=== PATIENT | female | born 1985 | race Caucasian/White ===

== ENCOUNTER → 2020-03-28 15:28 | Outpatient (CLI) | payer OTHER, SELFPAY ==
[2020-03-28 16:45] LABS: Add Manual Diff / Slide Review NO; Basophils Absolute Auto 100 /uL (0-100); Basophils Percent Auto 0.7 % (0-2); Eosinophils Absolute Auto 0 /uL (0-450); Eosinophils Percent Auto 0.6 % (2-4); Hematocrit 34.8 % (36-46); Hemoglobin 11.8 g/dL (12.0-16.0); Lymphocytes Absolute Auto 1500 /uL (1100-4500); Lymphocytes Percent Auto 17.9 % (25-40); Mean Corpuscular HGB Conc 33.9 % (30-36); Mean Corpuscular Hemoglobin 31.6 PG (26-34); Mean Corpuscular Volume 93.2 fL (80-100); Monocytes Absolute Auto 500 /uL (0-900); Monocytes Percent Auto 5.8 % (3-14); Neutrophils Absolute Auto 6300 /uL (1500-7000); Platelet Count 259 X10^3/uL (150-400); Red Blood Cell Count 3.73 X10^6/uL (4.0-5.2); Red Cell Distribution Width 13.1 % (11.6-14.8); White Blood Cell Count 8.4 X10^3/uL (4.5-11.0)
[2020-03-28 16:54] LABS: Appearance Urine UA CLEAR; Bilirubin Urine UA NEGATIVE (NEGATIVE); Color Urine UA YELLOW; Glucose Urine UA NEGATIVE (Negative); Ketones Urine UA NEGATIVE (NEGATIVE); Leukocyte Esterase Urine UA NEGATIVE (NEGATIVE); Nitrite Urine UA NEGATIVE (Negative); Occult Blood Urine UA NEGATIVE (Negative); Protein Urine UA NEGATIVE (Negative); Specific Gravity Urine UA 1.015 (1.000-1.035); Urobilinogen Urine UA 0.2 E.U./dL (0.2)
[2020-03-28 16:56] LABS: pH Urine UA 6.5 (4.5-8.0)
[2020-03-29 07:36] LABS: RPR Screen Non Reactive (Non Reactive)
[2020-03-29 09:07] LABS: Varicella IgG Antibody 991 index (Immune >165)
[2020-03-31 15:46] LABS: Hepatitis B Surface Antigen NEGATIVE s/c (NEGATIVE)
[2020-03-31 16:02] LABS: HIV 1 & 2 Ab/Ag 4th Gen Combo NEGATIVE (NEGATIVE); Hep C Virus Ab w/Reflex Quant NEGATIVE s/c (NEGATIVE)
== END ==
PROVIDERS: PCP Nurse Practitioner Family; Referring Provider Obstetrics & Gynecology; Visit Provider Obstetrics & Gynecology
DX: O09.511 Supervision of elderly primigravida, first trimester (principal); Z36.0 Encounter for antenatal screening for chromosomal anomalies
CPT/HCPCS: 36415; 80055; 81003; 81420; 86787; 86803; 86850; 86900; 86901; 87086; 87389

== ENCOUNTER → 2020-04-29 15:16 | Outpatient (CLI) | payer OTHER, SELFPAY ==
[2020-05-01 19:40] LABS: AFP Value 36.8 ng/mL (.); Gest Age on Col Date 16.9 weeks (.); Insulin Dep Diabetes No (.); OSBR Risk 1IN 10000 (.); Results Report (.); Test Results *Screen Negative* (.)
== END ==
PROVIDERS: PCP Nurse Practitioner Family; Referring Provider Obstetrics & Gynecology; Visit Provider Obstetrics & Gynecology
DX: Z34.02 Encounter for supervision of normal first pregnancy, second trimester (principal); Z3A.16 16 weeks gestation of pregnancy
CPT/HCPCS: 36415; 82105

== ENCOUNTER → 2020-05-19 10:14 | Outpatient (CLI) | payer OTHER, SELFPAY ==
--- NOTE | 2020-05-19 10:15 | DI.US.S_ITS ---
PROCEDURE: US OB >= 14 WEEKS FETUS INDICATIONS: Anatomy Scan OUTSIDE/PRIOR DATING DATA: Last menstrual period (LMP): 01/02/2020 . LMP-based estimated date of delivery (KARLEY): 10/08/2020 . First dating scan (date and location): [place] 03/12/2020 . Estimated date of delivery (KARLEY) from first dating scan: 10/05/2020 . TECHNIQUE: Real-time scanning was performed of the fetus, with image documentation and biometric measurements. COMPARISON: [facility], , OB <= 14 WEEKS FETUS, 03/12/2020, 14:10. [facility], , OB >= 14 WEEKS FETUS, 04/14/2020, 16:21. FINDINGS: General: A single living intrauterine gestation is present. Presentation: Vertex. Placenta: Placental position is posterior , without previa. Lower placental edge 2 cm or less from internal cervical os qualifies as low lying placenta. Amniotic fluid index: 16.7 cm, normal range is 5-24 cm. heart rate: 145 beats per minute. Maternal cervical canal: 4.4 cm long. Normal lower limit is 2.5 cm. biometrics: Biparietal diameter: 21 weeks 1 day Head circumference: 20 weeks 6 days Abdominal circumference: 21 weeks 0 day Femur length: 19 weeks 5 days Estimated gestational age from initial scan: not applicable. Composite gestational age from present scan: 20 weeks 5 days Estimated weight and percentile: 356 grams, 64th percentile Measurement variability for biometric dating: +/- 7 days from 14 weeks to 15 weeks 6 days gestation, +/- 10 days from 16 weeks to 21 weeks 6 days gestation, +/- 2 weeks from 22 weeks to 27 weeks 6 days gestation, +/- 3 weeks for 28 weeks gestation or later. weight reference: 4500 g or EFW >90/95% is considered macrosomia or large for gestational age. EFW <10% is small for gestational age. EFW 5% or less is considered intra-uterine growth restriction. Anatomic survey: Neuro: Ventricles are non-dilated at less than 10 mm. Cisterna magna is normal at 3-11 mm. Cerebellum is normal in size and morphology. Nuchal skin fold: Normal at less than 6 mm between 14-21 weeks gestational age. Face: Nose and lips, facial profile are normal. Spine: No evidence for spina bifida. Heart: 4-chambered heart is present, with normal ventricular outflow tracts. Diaphragm: Diaphragm is intact. Stomach: Left-sided stomach is present. Kidneys: No hydronephrosis. Normal is less than 5 mm in 2nd trimester, less than 7 mm in 3rd trimester. Cord: 3-vessel cord has orthotopic insertion. Bladder: Normal in size. Extremities: All 4 extremities identified. IMPRESSION: Single live intrauterine with a composite ultrasound age of 20 weeks 5 days from present scan. Dictated by: Marcellus Puckett M.D. on 05/19/2020 at 12:07 Approved by: Marcellus Puckett M.D. on 05/19/2020 at 12:12
== END ==
PROVIDERS: PCP Nurse Practitioner Family; Referring Provider Obstetrics & Gynecology; Visit Provider Obstetrics & Gynecology
DX: Z34.02 Encounter for supervision of normal first pregnancy, second trimester (principal); Z3A.20 20 weeks gestation of pregnancy
CPT/HCPCS: 76811

== ENCOUNTER → 2020-07-03 15:04 | Outpatient (CLI) | payer OTHER, SELFPAY ==
[2020-07-03 17:06] LABS: Hematocrit 31.1 % (36-46); Hemoglobin 10.8 g/dL (12.0-16.0)
[2020-07-03 18:15] LABS: GTT (PREG) 1 Hour PP 50gm Dose 168 mg/dL (76-139)
== END ==
PROVIDERS: PCP Nurse Practitioner Family; Referring Provider Obstetrics & Gynecology; Visit Provider Obstetrics & Gynecology
DX: Z34.02 Encounter for supervision of normal first pregnancy, second trimester (principal); Z3A.26 26 weeks gestation of pregnancy
CPT/HCPCS: 36415; 82950; 85014; 85018

== ENCOUNTER → 2020-07-09 08:05 | Outpatient (CLI) | payer OTHER, SELFPAY ==
[2020-07-09 09:35] LABS: Glucose Fasting Gestational 74 mg/dL (76-95)
[2020-07-09 10:31] LABS: Glucose 1 Hour Gest 154 mg/dL (76-180)
[2020-07-09 11:23] LABS: Glucose 2 Hour Gest 110 mg/dL (76-155)
[2020-07-09 11:43] LABS: Glucose Tol Interp,Gestational INTERPRETATION
[2020-07-09 12:29] LABS: Glucose 3 Hour Gest 39 mg/dL (76-140)
== END ==
PROVIDERS: PCP Nurse Practitioner Family; Referring Provider Obstetrics & Gynecology; Visit Provider Obstetrics & Gynecology
DX: Z34.83 Encounter for supervision of other normal pregnancy, third trimester (principal); Z3A.26 26 weeks gestation of pregnancy
CPT/HCPCS: 36415; 82951; 82952

== ENCOUNTER → 2020-09-04 16:57 | Outpatient (CLI) | payer OTHER, SELFPAY ==
[2020-09-05 17:49] LABS: Strep Grp B PCR NEG for Grp B Strep
== END ==
PROVIDERS: PCP Nurse Practitioner Family; Visit Provider Obstetrics & Gynecology
DX: Z34.03 Encounter for supervision of normal first pregnancy, third trimester (principal); Z3A.35 35 weeks gestation of pregnancy
CPT/HCPCS: 87653

== ENCOUNTER → 2020-10-01 09:45 | Outpatient (CLI) | payer OTHER, SELFPAY ==
[2020-10-01 10:32] LABS: COVID19 -Nasal RAPID Negative (Negative)
== END ==
PROVIDERS: PCP Nurse Practitioner Family; Visit Provider Obstetrics & Gynecology
DX: Z01.812 Encounter for preprocedural laboratory examination (principal); Z20.822 Contact with and (suspected) exposure to COVID-19
CPT/HCPCS: 87635

== ENCOUNTER 2020-10-02 07:13 | Inpatient (IN) | payer OTHER, SELFPAY ==
--- NOTE | 2020-10-02 07:22 | P.HPOB_ITS ---
OB HPI Date/Time Date of admission: 10/02/20 Date Patient Seen: 10/02/20 Time Patient Seen: 07:23 History of Present Condition Chief complaint: : 1 Para: 0 Estimated Date of Delivery: 10/08/20 Estimated Gestational Age (weeks): 39+1 Narrative: Jesica Martinez is a 35 year old female 1 para 0 at 39-,1/7 weeks gestation who presents for induction of labor due to advanced maternal age Indications Indication for induction OB: other (Advanced maternal age) History of Present care: good care, initiated at week # (10), number of visits (11) and pounds weight gain (26) Dating criteria: LMP confirmed by 1st trimester US Ultrasounds: normal 1st trimester US and normal mid trimester US Obstetrical complications: none Medical complications: none Preadmission Labs Blood type: O (+) positive -: Antibody screen: negative, GBS status: negative, HBsAG: negative, HIV: negative and RPR/VDLR: negative -: Chlamydia screen: not detected and Gonorrhea screen: not detected -: Varicella: immune HCT: 31.1 HCAB: negative PAP: Normal Cell-free DNA: Normal male Urine: negative 1 hr GTT: 168 3 hr GTT: 1 hr (154), 2 hr (110) and 3 hr (39) Fasting blood glucose: 74 Prior (ies) History: None Evaluation Evaluation Variability: Moderate (11-25) monitor accelerations: Present Monitor Decelerations: Absent Status: Category l Cervical dilation (cm): 3 Cervical effacement (%): 85 station: -1 [facility] Medical History (Updated 03/17/20 @ 06:15 by Viry Capps MD) Melanoma (~09/2019) Family History (Updated 02/21/20 @ 11:20 by Staci James RN) Mother Cancer Lymphedema Father Hypertension Grandmother Diabetes mellitus Grandfather Cancer Grandmother No problems noted. Grandfather Cancer Family/Other Cancer Social History marital status: number of children: 0 household members: spouse lives independently: Yes caregiver/support person: No housing: house pets and animals: Yes (1 dog, feels he will be safe. ) education level: master's degree ([employer]) occupational status: employed (Works in [employer]. ) current occupational exposures/hazards: No special max needs: No seatbelt use: always Smoking Status: Never smoker second hand exposure: No alcohol intake: former (Pre-, formerly occasional, 1-2 drinks/week.) substance use type: does not use during the past year weight has: remained stable well-balanced diet: daily or most days daily servings fruits/ve or more times/day caffeine: No (Has aversion to it now, but sometimes one cup a day.) eating out: rarely or never Type(s) of exercise: walking and bicycling frequency: 3-4 times per week (Feeling nauseous lately, so not as often, but usually very regular.) duration: 15-30 minutes/day Meds Home Medications and Allergies Home Medications Medication Instructions Recorded Confirmed Type omega-3 fatty acids 1,000 mg 1,000 mg PO DAILY 02/21/20 10/01/20 History capsule prenat.vits,theo,ucg-ycyv-toquw 1 tab PO DAILY 02/21/20 10/01/20 History hydrocortisone 2.5 % topical cream 1 applic NE BID-QID PRN #30 g 08/07/20 10/01/20 Rx with perineal applicator Allergies Allergy/AdvReac Type Severity Reaction Status Date / Time No Known Drug Allergies Allergy Verified 10/01/20 09:49 Exam Vital Signs (past 8 hours): Generally: No acute distress Lungs: Clear to auscultation bilaterally Cardiovascular: Regular rate and rhythm Fundal height: 39 cm Estimated weight: 7 lb Extremities: No edema, 1+ DTRs Assessment and Plan Assessment and Plan Assessment and Plan narrative: Assessment: 35-year-old 1 para 0 at 39-,1/7 weeks gestation for induction of labor due to advanced maternal age Plan: Pitocin per protocol 2 Artificial rupture of membranes when able Epidural as necessary Expected management to spontaneous vaginal delivery Time Spent with Patient Total time spent with greater than 50% in coordination of care (as documented) at patient's floor/unit and/or counseling patient:: 15-24 minutes
[2020-10-02] MEDS: OXYTOCIN PREMIX 30 UNIT/500 ML PLAST..BAG IV (08:06)
[2020-10-02] MEDS: LACTATED RINGERS 1,000 ML 100 ML IV ×2 (08:06→13:37)
[2020-10-02 08:42] VITALS: BP 102/67
[2020-10-02 08:59] LABS: Add Manual Diff / Slide Review NO; Basophils Absolute Auto 100 /uL (0-100); Basophils Percent Auto 1.1 % (0-2); Eosinophils Absolute Auto 0 /uL (0-450); Eosinophils Percent Auto 0.5 % (2-4); Hematocrit 32.9 % (36-46); Hemoglobin 11.5 g/dL (12.0-16.0); Lymphocytes Absolute Auto 1300 /uL (1100-4500); Lymphocytes Percent Auto 19.3 % (25-40); Mean Corpuscular HGB Conc 34.8 % (30-36); Mean Corpuscular Hemoglobin 34.1 PG (26-34); Mean Corpuscular Volume 97.7 fL (80-100); Monocytes Absolute Auto 500 /uL (0-900); Monocytes Percent Auto 7.4 % (3-14); Neutrophils Absolute Auto 4800 /uL (1500-7000); Neutrophils Percent Auto 71.7 % (50-75); Platelet Count 189 X10^3/uL (150-400); Red Blood Cell Count 3.37 X10^6/uL (4.0-5.2); Red Cell Distribution Width 13.2 % (11.6-14.8); White Blood Cell Count 6.7 X10^3/uL (4.5-11.0)
[2020-10-02] MEDS: FENT 2MCG/ML BUPIV 0.125% EPI 200 MCG/100 ML PLAST..BAG 12 MCG EPIDURAL (13:37)
--- NOTE | 2020-10-02 18:56 | PM.OBPNLAB ---
Date/Time Date Patient Seen: 10/02/20 Time Patient Seen: 13:10 Pain Control Pain control: tolerating well Pelvic Exam Dilation (cm): 4 Effacement (%): 100 station: 0 Amniotic membrane status: Bulging Contractions Contractions on admission: regular Monitor mode: External Pitocin rate (mU/min): 9 Contraction frequency (min): 3 Contraction duration (min): 1 Contraction pattern: Regular Contraction intensity: Strong/Firm Status status: Category l Heart Rate Baseline: 135 Monitor Accelerations: Present Monitor Decelerations: Absent Monitor Variability: Moderate Assessment and Plan Assessment: active labor Plan: other (Artificial rupture of membranes with copious clear amniotic fluid, epidural as necessary)
--- NOTE | 2020-10-02 18:57 | PM.OBPRVD ---
Events: Labor Induction Labor & Delivery Delivery date: 10/02/20 Intrapartal Events: Deceleration (Variable decelerations with pushing) Cervical ripening method: none Induction method: per pitocin protocol Delivery augmentation: rupture of membranes Delivery monitor: external FHT and external uterine Route of delivery: vacuum extraction Indication for instrumentation: nonreassuring FHR tracing (Deep variable decelerations with pushing) Episiotomy description: None L&D Laceration Description: Perineal - 2nd Degree and Vaginal - 2nd Degree Delivery repair: vicryl and chromic Estimated blood loss (mL): 200 Anesthesia Type: Epidural Complications: None Narrative: Patient complete and pushed for 17 minutes. A vacuum was placed due to deep variable decelerations with pushing. At 6:02 p.m., a live male delivered spontaneously over an intact perineum. The vacuum was removed. A tight nuchal cord was cut on the perineum. Cord bloods were obtained. Cord blood collection was performed for storage. A piece of the cord was placed sterilely into cup. Pitocin was given in the IV fluids. The placenta delivered intact with a three-vessel cord at 6:12 p.m.. The fundus was massaged to firm. A second-degree vaginal/perineal laceration was repaired in the usual fashion. Hemostasis was achieved. . Epidural analgesia. Apgars 8 at 1 minute and 8 at 5 minutes. Mom and stable to recovery. Baby 1: Infant gender: Male Presentation: vertex Position: Left Occiput Anterior Placenta delivery description: Spontaneous Cord Vessel Description: 3 Vessels, Nuchal Cord, Tight and Clamped/Cut score (1 min): 8 score (5 min): 8 weight: 7 lb 7 oz Plan for aftercare: Routine care
[2020-10-02] MEDS: LANOLIN OINT 7 GM 1 APPLIC TOP (20:26)
[2020-10-02] MEDS: ACETAMINOPHEN 325 MG TABLET 650 MG PO (20:27)
[2020-10-02] MEDS: IBUPROFEN 600 MG TABLET PO (20:27)
[2020-10-02] MEDS: DERMOPLAST SPRAY 20% 60 ML 1 SPRAY TOP (20:27)
[2020-10-03] MEDS: IBUPROFEN 600 MG TABLET PO ×4 (02:30→20:38)
[2020-10-03] MEDS: ACETAMINOPHEN 325 MG TABLET 650 MG PO ×4 (02:30→20:39)
[2020-10-03 06:38] LABS: Hematocrit 28.9 % (36-46); Hemoglobin 10.1 g/dL (12.0-16.0)
[2020-10-03] MEDS: PRENATAL VIT,CALC/IRON/FOLIC 1 TABLET 1 TAB PO (08:40)
[2020-10-04] MEDS: ACETAMINOPHEN 325 MG TABLET 650 MG PO ×2 (02:27→09:12)
[2020-10-04] MEDS: IBUPROFEN 600 MG TABLET PO ×2 (02:27→09:16)
[2020-10-04] MEDS: DOCUSATE 100 MG CAPSULE PO (09:12)
[2020-10-04] MEDS: PRENATAL VIT,CALC/IRON/FOLIC 1 TABLET 1 TAB PO (09:12)
[2020-10-04 11:23] VITALS: BP 111/69; PULSE 82; RESP 16; TEMP 37.3
--- NOTE | 2020-10-20 07:35 | PM.OBDS.1 ---
Discharge Providers Provider Date of admission: 10/02/20 07:13 Discharge Date: 10/04/20 Primary care physician: TREVOR Danielson Consults: 10/03/20 19:02 Consult to Automotive Specialty Technician Routine Comment: Discharge provider: Viry Capps MD Summary Hospital Course Date Patient Seen: 10/04/20 Time Patient Seen: 09:30 Diagnoses: Thirty-nine weeks gestation Advanced maternal age Induction of labor with Pitocin Artificial rupture of membranes Epidural analgesia Vacuum assisted vaginal delivery Second-degree vaginal/perineal laceration Hospital Course: Patient is a 35-year-old 1 para 1 who presented on October 02, 2020 for a scheduled induction of labor due to advanced maternal age. She was started on Pitocin per protocol 2. Artificial rupture of membranes was performed. She received an epidural for pain management. She progressed to complete dilation and had a vacuum assisted vaginal delivery, due to deep variable decelerations with pushing. She had a second-degree laceration which was repaired. Her course was unremarkable and she was discharged home on day # 1-2. Peripartum Data Delivery Method: Assisted Delivery (Vacuum assist) Laceration Description: Perineal - 2nd Degree and Vaginal - 2nd Degree Episiotomy description: None Procedures: Pitocin induction of labor Artificial rupture of membranes Epidural analgesia Vacuum assisted vaginal delivery Second-degree laceration repair complications: none 1: Gender: Male Disposition of : home Status at Discharge Cognitive/behavioral status at discharge: oriented Functional status at discharge: independent ambulation Overall status at discharge: patient is progressing back to baseline Time Spent with Patient Time attestation: Total time spent providing and/or coordinating discharge services: Time spent: Less than 30 minutes Objective Labs Result Diagrams: 10/03/20 06:25 Exam Narrative Exam Narrative: Generally: Patient is sitting up in bed, holding infant, no acute distress Fundus: Firm at U -1 Extremities: Negative Homans, no edema Discharge Plan Discharge Plan Patient Disposition: Home Provider Discharge Comment: Call with fever, chills, or bleeding vaginally more than a pad in an hour ibuprofen 600 mg every 6 hours as needed for for cramping Tylenol 650 mg every 6 hours as needed Discharge orders & Medications Prescriptions: Continued hydrocortisone [Anusol-HC] 2.5 % cream with perineal applicator 1 applic NE BID-QID PRN (Reason: hemorrhoid) Qty: 30 RF: 3 prenat.vits,theo,[id number] Tablet 1 tab PO DAILY RF: 0 omega-3 fatty acids [Fish Oil Concentrate] 1,000 mg capsule 1,000 mg PO DAILY RF: 0 Follow up/Referrals: Viry Capps MD [Physician] - 6 Weeks (Please make an appointment for check in 6 weeks with ) Diet/Activity/Treatments Diet: Regular Activity: Nothing in the vagina for 6 weeks No lunging or squatting Skin/Wound/Dressing Care Report to your healthcare provider any signs of infection, such as:: chills, fever, increased pain and unusual drainage Visit Report/Discharge Packet Instructions: DI for Labor and Delivery, Vaginal , Butoconazole Vaginal Cream Discharge Data Primary Care Provider: Leyda Johnson
== END 2020-10-04 11:30 | disposition home or self-care (01) | DRG 807 ==
PROVIDERS: Admitting Provider Obstetrics & Gynecology; PCP Nurse Practitioner Family; Referring Provider Obstetrics & Gynecology; Visit Provider Obstetrics & Gynecology
DX: O76 Abnormality in fetal heart rate and rhythm complicating labor and delivery (principal); Z37.0 Single live birth; O70.1 Second degree perineal laceration during delivery; Z3A.39 39 weeks gestation of pregnancy; O69.81X0 Labor and delivery complicated by cord around neck, without compression, not applicable or unspecified
CPT/HCPCS: 01967; 36415; 59050; 59400; 85014; 85018; 85025; 86850; 86900; 86901; G0379; J2590